=== PATIENT | female | born 1995 | race Caucasian/White ===

== ENCOUNTER 2020-05-24 10:24 | Outpatient (CLI) | payer OTHER ==
[~2020-05-24] VITALS: Ht 160 cm; Wt 66.1 kg
[2020-05-24 10:41] VITALS: BP 117/68
[2020-05-24] MEDS ORDERED: PRENTAB9 PO (10:43)
[2020-05-24 10:46] VITALS: BP 117/71
== END 2020-05-24 12:34 | disposition home or self-care (01) ==
LOC: M LDO 10:24
DX: O26.892 Other specified pregnancy related conditions, second trimester (principal); Z3A.24 24 weeks gestation of pregnancy
CPT/HCPCS: 81001; 87086; G0378; G0463

== ENCOUNTER 2020-08-09 11:40 | Emergency (ER) | payer OTHER ==
[~2020-08-09] VITALS: Ht 160 cm; Wt 68.7 kg
[2020-08-09 11:40] VITALS: BP 119/77
[~2020-08-09 11:40] MED LIST: PRENTAB9 PO
[2020-08-09] MEDS ORDERED: ACET-897 PO (11:48)
--- OUTSIDE RECORDS SUMMARY | 2020-08-09 12:13 | CCD ---
Author Author [facility] Organization [facility] Address Unknown Phone Unavailable Support Name Relationship Address Phone UE Next Of Kin Unknown Unavailable [employer] Next Of Kin [address] [place] [address] [place] [id number] [place] [address] Re-disclosure Warning The records that you are about to access may contain information from federally-assisted alcohol or drug abuse programs. If such information is present, then the following federally mandated warning applies: This information has been disclosed to you from records protected by federal confidentiality rules (42 CFR part 2). The federal rules prohibit you from making any further disclosure of this information unless further disclosure is expressly permitted by the written consent of the person to whom it pertains or as otherwise permitted by 42 CFR part 2. A general authorization for the release of medical or other information is NOT sufficient for this purpose. The Federal rules restrict any use of the information to criminally investigate or prosecute any alcohol or drug abuse patient.The records that you are about to access may contain highly sensitive health information, the redisclosure of which is protected by Article 27-F of the [facility] Public Health law. If you continue you may have access to information: Regarding HIV / AIDS; Provided by facilities licensed or operated by the [facility] Office of Mental Health; or Provided by the [facility] Office for People With Developmental Disabilities. If such information is present, then the following [facility] mandated warning applies: This information has been disclosed to you from confidential records which are protected by state law. State law prohibits you from making any further disclosure of this information without the specific written consent of the person to whom it pertains, or as otherwise permitted by law. Any unauthorized further disclosure in violation of state law may result in a fine or nursing home sentence or both. A general authorization for the release of medical or other information is NOT sufficient authorization for further disc losure. Insurance Providers Payer name Policy type / Coverage type Policy ID Covered republican ID Covered republican's relationship to urbano Policy Urbano Plan Information [facility] [id number] Results ID Date Data Source [id number] 10/18/2019 02:02:00 PM EDT [facility] Name Value Range Interpretation Code Description Data Janette rce(s) Supporting Document(s) SARS CORONAVIRUS 2 RNA [facility] This lab was ordered by [facility] and reported by [facility]. Procedure
== END 2020-08-09 12:29 | disposition home or self-care (01) ==
LOC: M ED 11:40
DX: Z20.828 Contact with and (suspected) exposure to other viral communicable diseases (principal); O99.891 Other specified diseases and conditions complicating pregnancy; R50.9 Fever, unspecified; O99.013 Anemia complicating pregnancy, third trimester; Z88.1 Allergy status to other antibiotic agents; Z88.2 Allergy status to sulfonamides; Z79.899 Other long term (current) drug therapy; Z3A.35 35 weeks gestation of pregnancy
CPT/HCPCS: 99283; U0003

== ENCOUNTER 2020-09-05 06:45 | Inpatient (IN) | payer OTHER ==
[2020-09-05] VITALS (21 sets, daily range): BP systolic 131–164; BP diastolic 72–101
[~2020-09-05] VITALS: Ht 160 cm; Wt 69.4 kg
[~2020-09-05 06:45] MED LIST changes: +ACET-897 PO
[2020-09-05 07:37] LABS: APPEARANCE, URINE HAZY (CLEAR); BACTERIA, URINE AUTO NEGATIVE (NEGATIVE); BILIRUBIN, URINE AUTO NEGATIVE (NEGATIVE); BLOOD, URINE BLOOD 1+ (NEGATIVE); COLOR, URINE YELLOW (YELLOW); GLUCOSE, URINE (UA) AUTO NEGATIVE (NEGATIVE); KETONE, URINE AUTO NEGATIVE (NEGATIVE); LEUKOCYTE ESTERASE, URINE AUTO 3+ (NEGATIVE); MUCUS, URINE SMALL (NEGATIVE); NITRITE, URINE AUTO NEGATIVE (NEGATIVE); PROTEIN, URINE AUTO NEGATIVE (NEGATIVE); RBC, URINE AUTO 3 /HPF (0-3); SPECIFIC GRAVITY URINE AUTO 1.008 (1.002-1.035); SQUAMOUS EPITHELIAL CELL UR AU 1 /HPF (0-6); UROBILINOGEN, URINE AUTO 0.2 mg/dL (0.0-2.0); WBC, URINE AUTO 98 /HPF (0-3)
--- OUTSIDE RECORDS SUMMARY | 2020-09-05 08:30 | CCD ---
Author Author [facility] Organization [facility] Address Unknown Phone Unavailable Support Name Relationship Address Phone UE Next Of Kin Unknown Unavailable [employer] Next Of Kin [address] [place] [address] MARK HU Next Of Kin [id number] [place] [address] Re-disclosure Warning The records that you are [...] is protected by Article 27-F of the [facility] Public Health law. If you continue you may have access to information: Regarding HIV / AIDS; Provided by facilities licensed or operated by the [facility] Office of Mental Health; or Provided by the [facility] Office for People With Developmental Disabilities. If such information is present, then the following [facility] mandated warning applies: This information has [...] law may result in a fine or half-way sentence or both. A general authorization for the release of medical or other information is NOT sufficient authorization for further disc losure. Insurance Providers Payer name Policy type / Coverage type Policy ID Covered constitution party ID Covered constitution party's relationship to urbano Policy Urbano Plan Information [facility] [id number] Results ID Date Data Source [id number] 08/09/2020 12:12:00 PM EST [facility] Name Value Range Interpretation Code Description Data Janette rce(s) Supporting Document(s) SARS coronavirus 2 RNA Not Detected [facility] This lab was ordered by [facility] and reported by [facility]. ID Date Data Source [id number] 10/18/2019 02:02:00 PM EDT [facility] Name Value Range Interpretation Code Description Data Janette rce(s) Supporting Document(s) SARS CORONAVIRUS 2 RNA [facility] This lab was ordered by [facility] and reported by [facility]. Procedure
[2020-09-05] MEDS ORDERED: PENICILLIN G POTASSIUM IV 5 MU in D5W MINI-BAG PLUS 100 ML IV STA (08:34)
[2020-09-05] MEDS ORDERED: LACTATED RINGER'S 1000 ML IV ONE (08:45)
[2020-09-05 09:18] LABS: HEMATOCRIT 36.5 % (36.0-47.0); HEMOGLOBIN 12.3 g/dl (12.0-15.5); MEAN CORPUSCULAR HEMOGLOBIN 30.3 pg (27.0-33.0); MEAN CORPUSCULAR HGB CONC 33.7 g/dl (32.0-36.5); MEAN CORPUSCULAR VOLUME 89.9 fl (80.0-96.0); PLATELET COUNT, AUTOMATED 272 10^3/uL (150-450); RED BLOOD COUNT 4.06 10^6/uL (4.00-5.40)
[2020-09-05] MEDS: LR 1,000 ML IV SCH ×2 (10:24→17:30)
--- NOTE | 2020-09-05 10:45 | HPEPDOC ---
Obstetrical History & Physical General Date of Admission Sep 05, 2020 at 08:26 History of Present Illness 24yo chapo in active labor @term Chief Complaint: Contractions, term Information Provided By: Patient Age: 24 : 1 Term: 0 Pre-term: 0 Abortions: 0 Livin Care Care: Good Care Dating Final EDC: Sep 09, 2020 Final EDC for Daily Update: Sep 09, 2020 Final EDC by: 1st trimester (US) 1st Trimester Date: Jan 30, 2020 Weeks + Days: 8 (+1) Estimated Date of Confinement: Sep 09, 2020 EGA at Admission: 39 (+3) Antepartum Course Diagnos(e)s A1GDM, gestational anemia Height (inches): 63 Pre- weight (lbs.): 120 Admission Weight (lbs.): 153 Change in Weight (lbs.): 33 Past Medical History Past Obstetrical History : Past Obstetrical History: Primgravida [employer] History: No pertinent history Past Medical History Medical History UTI, staph infection of axilla x2, MRSA infection of chin x1 Surgical History: Tonsilectomy, Other (I&D of axilla) Family History Significant Family History: No pertinent family hx Social History Marital Status: Family situation: Spouse/partner home Psychosocial History: No pertinent psych hx * Smoker: former Smoker Alcohol: Denies Drugs: denies Abuse Violence Screening Have you been hit/kicked/slapp: No Have you been sexually assault: No Imunizations Tdap status: current Influenza Status: current Allergies Coded Allergies: ciprofloxacin (Verified Allergy, Intermediate, ITCHY THROAT, 09/05/20) clindamycin (Verified Allergy, Unknown, 05/24/20) TONGUE SWELLING AND ITCHY THROAT sulfamethoxazole (Verified Allergy, Unknown, 05/24/20) TONGUE SWELLING AND ITCHY THROAT trimethoprim (Verified Allergy, Unknown, 05/24/20) TONGUE SWELLING AND ITCHY THROAT Medications Scheduled No.137/Iron/Folic Acd ( Vitamin Tablet) 1 Each Tablet, 1 TAB PO DAILY Miscellaneous Medications Acetaminophen (Tylenol Extra Strength) 500 Mg Tablet, 500 MG PO Physical Examination Physical Examination GENERAL: Alert and oriented times three. BREAST: . ABDOMEN: Gravid and non-tender to touch. FETUS: fetus is vertex (VTX) by Qamar. HEART RATE: Regular rate and rhythm. LUNGS: Clear to auscultation (CTA). EXTREMITIES: No edema. No clonus. Vital Signs/I&O Vital Signs Date Time Temp Pulse Resp B/P (MAP) Pulse Ox O2 Delivery O2 Flow Rate FiO2 09/05/20 08:16 75 18 131/75 (93) Laboratory Data 24H LABS Laboratory Tests 2 09/05/20 07:14: Urine Color YELLOW, Urine Appearance HAZY, Urine pH 7.0, Urine Specific [place] 1.008, Urine Protein NEGATIVE, Urine Glucose (Auto)(UA) NEGATIVE, Urine Ketones (Auto) NEGATIVE, Urine Blood 1+H, Urine Nitrite NEGATIVE, Urine Bilirubin NEGATIVE, Urine Urobilinogen 0.2, Urine Leukocyte Esterase (Auto) 3+H, Urine WBC (Auto) 98H, Urine RBC (Auto) 3, Urine Hyaline Casts (Auto) 0, Urine Bacteria (Auto) NEGATIVE, Urine Squamous Epithelial Cells 1, Urine Mucus (Auto) SMALL, Urine Sperm (Auto) 09/05/20 08:33: Serology Scanned Report Hepatitis B Testing 09/05/20 09:00: Nucleated Red Blood Cells % (auto) 0.0 CBC/BMP Laboratory Tests 09/05/20 09:00 Pertinent Laboratoy Data Blood Type: O+ RBC Antibody Screen: Negative HIV: Negative Hepatitis B: Negative Rapid Plasma Reagin: Nonreactive Rubella: Immune Varicella: Immune Chlamydia/Gonorrhea: Negative Group B Streptococcus: Positive Quad Screen Test: Negative Cystic Fibrosis: Negative Glucose Tolerance Test: 150 (81/184/167/139) Anatomy Ultrasound Placenta Location: Anterior Normal Anatomy: Yes Placenta Previa: No Vaginal Examination Dilation: 5 cm Effacement: 100% Station: -2 Presentation: Cephalic presentation Assessment Heart Rate (FHR): 120 Variability: Moderate Accelerations: Positive Decelerations: None Tocometer Contractions: Yes Frequency: regular, every 2-2 min. Duration: greater than 60 seconds Strength: palpated as moderate, resting tone palp/soft Multi-drug resistant Organism: MRSA (states hx requiring hospialization and I&D) Assessment/Plan Assessment Mayra is a 25-year-old (G)1 para (P)0 at 39+3 weeks by 8+1-week ultrasound. Presents to Labor and Delivery (L&D) for c/o contractions. Plan Admit and orient. Chairperson Anesthesiology and consent. Diet: regular. Group B Streptococcus (GBS) positive. PCN prophylaxis initiated per protocol. Labs and intravenous (IV) per unit protocol. Counseled on Pitocin and augmentation of labor. Lactated Ringers (LR): Bolus 1000 mL, then saline lock and encourage oral hydration. Encourage maternal movement and position changes. Intermittent auscultation per [facility] protocols. Anticipate [normal spontaneous delivery ()]. C-S as appropriate. MARTIN PERALES CNM Sep 05, 2020 10:45
[2020-09-05] MEDS: PENICILLIN G POTASSIUM IV 2.5 MU in IV 1 EA IV SCH ×2 (13:20→17:00)
--- NOTE | 2020-09-05 15:02 | IPNPDOC ---
Obstetrical Progress Note Date of Service Sep 05, 2020 Subjective Pt c/o continued back pain and pressure asking for something different for comfort Objective Vital Signs Date Time Temp Pulse Resp B/P (MAP) Pulse Ox O2 Delivery O2 Flow Rate FiO2 09/05/20 12:38 80 18 136/84 (101) Assessment Heart Rate (FHR): 120 (doppler) Variability: Other (normal heart rate on auscultation) Tocometer Contractions: Yes Frequency: regular, every 1-3 min. (by palpation) Duration: greater than 60 seconds Strength: palpated as strong, resting tone palp/soft Sterile Vaginal Examination Dilation: 7 cm (arom clear with exam) Effacement (%): 90% Station: -1, 0 Cervical Consistency: Soft Cervical Position: Posterior Postion/Presentation: Cephalic presentation Assessment and Plan Age: 25 : 1 Term: 0 Pre-term: 0 Abortions: 0 Livin EGA at Admission: 39 (+3) Status: Reassuring Group B Streptococcus: Positive Anticipate: Vaginal Delivery Additional Comments Pt assisted to hands and knees position and prepared for sterile water injections. Requested to discontinue procedure immediately after initiating first two injections. Assisted to return to a reverse position straddling the toilet with a warm compress on the low back for comfort while the tub filled with warm water. Pt currently coping well with contractions with movement and breathing in the tub attended by her . Continue oral hydration, saline lock, GBS prophylaxis, intermittent auscultation q 30 min in active labor, monitor for change in or maternal condition, evaluate for change as indicated, anticipate vaginal delivery. MARTIN PERALES CNM Sep 05, 2020 15:02
[2020-09-05] MEDS ORDERED: OXYTOCIN DRIP 30 UNITS in IV 1 EA IV SCH ×2 (15:13→18:15)
[2020-09-05] MEDS ORDERED: METHYLERGONOVINE MALEATE 0.2 MG TAB PO PRN (18:15)
[2020-09-05] MEDS ORDERED: OXYTOCIN INJ 10 UNITS/ML VIAL (J2590) IM ONE (18:15)
[2020-09-05] MEDS ORDERED: BENZOCAINE 20% HEMORRHOIDAL OINTMENT 28GM TUBE TOP PRN (18:15)
[2020-09-05] MEDS ORDERED: ACETAMINOPHEN TAB 650MG DOSE (2X325MG) PO PRN (18:15)
[2020-09-05] MEDS ORDERED: RHOGAM 300 MCG (1500 IU) INJ (J2790) IM SCH (18:15)
[2020-09-05] MEDS ORDERED: DOCUSATE SODIUM 100MG CAPSULE PO PRN (18:15)
[2020-09-05] MEDS ORDERED: METHYLERGONOVINE MALEATE 0.2 MG/ML VIAL (J2210) IM ONE (18:15)
[2020-09-05] MEDS ORDERED: MEASLES,MUMPS,RUBELLA VACCINE INJ (MMR-II) (90707) SC SCH (18:15)
--- NOTE | 2020-09-05 18:41 | DNPDOC ---
[facility] Delivery Note Delivery Note DATE OF DELIVERY: 05Sep2020 PREDELIVERY DIAGNOSIS: 39-3/7 weeks' gestation and labor. POST DELIVERY DIAGNOSIS: Delivered. PROCEDURE: Spontaneous vaginal delivery. TRAUMA DOCTOR: Rena Perales CNM ANESTHESIA: none ESTIMATED BLOOD LOSS: 550 mL. FINDINGS: 8 pound 6 ounce female infant Shil[place], Score [8/9, no nuchal cord. DELIVERY SUMMARY: Patient is a 25-year-old 1 now para 0 who was admitted to labor and delivery for active labor on 05Sep2020. Mayra called out with c/o urge to push. Gradual progress was made to on OA presentation with restitution to ARELY. The left anterior shoulder delivered easily followed by the posterior shoulder and corpus. The infant was placed immediately on the maternal abdomen where she was dried and stimulated. The cord was clamped x2 after pulsation ceased and cut by the FOB. Cord blood was collected and sent for testing. The IV was noted to be out and the patient given 10u IM pitocin in the right thigh. The placenta delivered spontaneously intact with a succenturiate lobe in Suarez presentation with large bleeding. The uterus was massaged and the cervix swept for several clots and a small portion of amniotic membrane. 1000mcg cytotec was placed rectally and the cervix was swept for several additional clots and the uterus massaged and methergine given IM in the right thigh. The IV was restarted in the left arm and pitocin infusion started per protocol. The uterus firmed and bleeding slowed with interventions. On examination of the perineum a hemostatic right labial abrasion and perineal abrasion were noted which did not require repair. Mother and baby entered the recovery phase in stable condition. RENA PERALES CNM Sep 05, 2020 18:41
[2020-09-06 02:00] VITALS: BP 125/81
[2020-09-06 06:00] VITALS: BP 114/65
[2020-09-06] MEDS: IBUPROFEN 800 MG TAB PO PRN ×2 (06:38→20:02)
[2020-09-06 06:55] LABS: MEAN CORPUSCULAR HEMOGLOBIN 30.9 pg (27.0-33.0); MEAN CORPUSCULAR HGB CONC 34.1 g/dl (32.0-36.5); MEAN CORPUSCULAR VOLUME 90.6 fl (80.0-96.0); PLATELET COUNT, AUTOMATED 265 10^3/uL (150-450); RED BLOOD COUNT 2.98 10^6/uL (4.00-5.40); WHITE BLOOD COUNT 17.9 10^3/uL (4.0-10.0)
[2020-09-06 07:02] LABS: HEMOGLOBIN 9.2 g/dl (12.0-15.5)
[2020-09-06] MEDS ORDERED: OXYTOCIN INJ 10 UNITS/ML VIAL (J2590) IM ONE (08:15)
[2020-09-06] MEDS: PRENATAL VITAMINS CHEWABLE TABLET PO SCH (09:08)
[2020-09-06] MEDS ORDERED: LIDOCAINE 1% MDV 20ML VIAL SC ONE (09:15)
--- NOTE | 2020-09-06 09:39 | IPNPDOC ---
Progress Note Date of Service: Sep 06, 2020 Day#: 1 Progress Note SUBJECT: Mayra is a 25-year-old 1 now Para 1 status post uncomplicated spontaneous vaginal delivery at 39-3/7 weeks' on 05Sep2020 of a male 8 pounds 6 ounces with post vaginal abrasion , doing well day # 1. She has been ambulating, voiding spontaneously without issue and tolerating regular diet. Breast feeding without issue. Reports lochia is like a normal period. Patient is ambulating well. Reports some cramping with . Denies any pain. Voiding without difficulty. OBJECTIVE: VITAL SIGNS: Within normal limits, afebrile. Alert and oriented times three. Breath sounds clear to auscultation. Heart rate: Regular rate and rhythm, no murmurs, rubs or gallops. Abdomen: Fundus firm at U-2. Soft, NTTP. Small lochia. ASSESSMENT: Mayra is a 25-year-old 1 now Para 1 status post uncomplicated spontaneous vaginal delivery after presenting in active labor, delivered at 39-3/7 weeks', doing well on day 1. Vitals within normal limits, afebrile, hemodynamically stable with no evidence of infection. PLAN: 1. Discharge to home on day 2 pp. 2. Tylenol and Motrin for pain. 3. Encourage breast feeding and ambulation. 4. Provide assistance as needed VS, I&O, 24H, Fishbone Vital Signs/I&O Vital Signs Date Time Temp Pulse Resp B/P (MAP) Pulse Ox O2 Delivery O2 Flow Rate FiO2 09/06/20 06:00 98.1 88 16 114/65 (81) 97 Room Air I&O- Last 24 Hours up to 6 AM 09/06/20 06:00 Intake Total 2175 ml Output Total 550 ml Balance 1625 ml Laboratory Data 24H LABS Laboratory Tests 2 09/06/20 06:41: Nucleated Red Blood Cells % (auto) 0.0 CBC/BMP Laboratory Tests 09/06/20 06:41 MARTIN PERALES CNM Sep 06, 2020 09:39
[2020-09-06 10:00] VITALS: BP 116/64
[2020-09-06 17:56] VITALS: BP 132/63
[2020-09-07 06:00] VITALS: BP 144/66
--- NOTE | 2020-09-07 06:32 | IPNPDOC ---
Progress Note Date of Service: Sep 07, 2020 Day#: 2 Progress Note SUBJECT: Mayra is a 25-year-old 1 now Para 1 status post spontaneous vaginal delivery at 39-3/7 weeks' on 05Sep2020 of a male 8 pounds 6 ounces with post vaginal abrasion , doing well day # 2. Patient had Gestational HTN on vital sign review and denies any s/s of pre e this morning. She has been ambulating, voiding spontaneously without issue and tolerating regular diet. Breast feeding without issue. Reports lochia is like a normal period. Reports some cramping with . Denies any pain. Voiding without difficulty. OBJECTIVE: VITAL SIGNS: Within normal limits, afebrile. Alert and oriented times three. Normal work of breathing Heart rate: Regular rate and rhythm, Abdomen: Fundus firm at U-2. Soft, NTTP. Small lochia. ASSESSMENT: Mayra is a 25-year-old 1 now Para 1 status post uncomplicated spontaneous vaginal delivery after presenting in active labor, delivered at 39-3/7 weeks', doing well on day 2. Vitals within normal limits, afebrile, hemodynamically stable with no evidence of infection or pre e PLAN: 1. Discharge to home today. 2. Tylenol and Motrin for pain. 3. Encourage breast feeding and ambulation. 4. using barrier for contraception 4. Provide assistance as needed VS, I&O, 24H, Fishbone Vital Signs/I&O Vital Signs Date Time Temp Pulse Resp B/P (MAP) Pulse Ox O2 Delivery O2 Flow Rate FiO2 09/06/20 17:56 98.2 75 18 132/63 (86) 99 09/06/20 06:00 Room Air I&O- Last 24 Hours up to 6 AM 09/07/20 06:00 Intake Total 240 ml Balance 240 ml Laboratory Data 24H LABS Laboratory Tests 2 09/06/20 06:41: Nucleated Red Blood Cells % (auto) 0.0 09/06/20 15:00: Methicillin-Resist S.aureus DNA PCR NOT DETECTED CBC/BMP Laboratory Tests 09/06/20 06:41 Microbiology Microbiology 09/05/20 Urine Culture, Received Pending NILDA BERNARDO MD Sep 07, 2020 05:56
[2020-09-07] MEDS ORDERED: IBUP80TA PO (06:34)
[2020-09-07] MEDS ORDERED: DOK1CAP7 PO (06:34)
[2020-09-07] MEDS: PRENATAL VITAMINS CHEWABLE TABLET PO SCH (08:57)
== END 2020-09-07 11:38 | disposition home or self-care (01) | DRG 807 ==
LOC: M LDO 06:45 → M LDI 08:26 → M OBS 20:20
PROVIDERS: ADMIT Obstetrics & Gynecology; ATTEND Registered Nurse
PROC: 10E0XZZ Delivery of Products of Conception, External Approach (ICD-10-PCS; principal; 2020-09-05)
DX: O13.4 Gestational [pregnancy-induced] hypertension without significant proteinuria, complicating childbirth (principal); Z37.0 Single live birth; Z3A.39 39 weeks gestation of pregnancy; O43.193 Other malformation of placenta, third trimester; O72.1 Other immediate postpartum hemorrhage